=== PATIENT | male | born 1975 | race Two or more races ===

== ENCOUNTER 2017-12-24 17:16 | Emergency (ER) | payer OTHER ==
[~2017-12-24] VITALS: Ht 160 cm; Wt 92.5 kg
[2017-12-24 17:29] VITALS: BP 116/81
== END 2017-12-24 22:18 | disposition left against medical advice (07) ==
LOC: ER 17:23
DX: S70.311A Abrasion, right thigh, initial encounter (principal); X58.XXXA Exposure to other specified factors, initial encounter; Y93.89 Activity, other specified; Y92.89 Other specified places as the place of occurrence of the external cause; Y99.8 Other external cause status; Z53.21 Procedure and treatment not carried out due to patient leaving prior to being seen by health care provider